=== PATIENT | female | born 1995 ===

== ENCOUNTER 2018-07-26 15:20 | Inpatient (IN) ==
[2018-07-26] MEDS ORDERED: DINOPROSTONE VAG GEL 10 MG SYRINGE VAG ONE ×2 (15:35→16:15)
[2018-07-26] MEDS ORDERED: MEPERIDINE 50 MG/1 ML VIAL IM PRN (15:45)
[2018-07-26] MEDS ORDERED: BUTORPHANOL 2 MG/ML VIAL IV PRN (15:45)
[2018-07-26] MEDS: LACTATED RINGERS 1,000 ML IV SCH ×2 (16:00→22:54)
[2018-07-26 16:34] LABS: Basophils % 0.3 % (0.0-0.8); Eosinophils # 0.2 10*3/uL (0.0-0.87); Eosinophils % 2.6 % (0.00-10.9); Hematocrit 32.2 VOL% (35.7-47.0); Hemoglobin 10.3 GM/DL (12.0-16.0); Immature Granulocytes % 0.3 %; Immature Granulocytes Absolute 0.02 #; Lymphocytes # 1.3 10*3/uL (1.4-4.0); Lymphocytes % 17.8 % (21.3-54.2); Mean Corpuscular Hemoglobin 30 PG (27-34); Mean Corpuscular Volume 92.5 FL (87-102); Mean Platelet Volume 10.5 FL (9.6-12.0); Monocytes # 0.6 10*3/uL (0.11-0.8); Monocytes % 8.7 % (1.7-12.7); Neutrophils # 5.1 10*3/uL (1.4-7.4); Neutrophils % 70.3 % (38.7-73.9); Platelet Count 254 T/CUMM (130-400); Red Blood Count 3.48 MC/CUMM (3.8-5.5); Red Cell Distribution Width 13.1 % (9.3-17.3); White Blood Count 7.2 T/CUMM (4-12)
[2018-07-26] MEDS: ONDANSETRON 4 MG/2 ML VIAL IV PRN (19:20)
[2018-07-26] MEDS ORDERED: NALOXONE 0.4 MG/ML VIAL IV PRN (21:43)
[2018-07-26] MEDS ORDERED: hydrOXYzine HCL 25 MG/1 ML VIAL IM PRN (21:43)
[2018-07-26] MEDS ORDERED: diphenhydrAMINE 50 MG/1 ML VIAL IV PRN (21:43)
[2018-07-26] MEDS ORDERED: ePHEDrine 50 MG/ML AMP IV PRN (21:43)
[2018-07-26] MEDS ORDERED: FAMOTIDINE 20 MG/2 ML VIAL IV ONE (21:44)
[2018-07-26] MEDS ORDERED: CITRIC ACID/SODIUM CITRATE 30 ML UDCUP PO ONE (21:44)
[2018-07-26] MEDS ORDERED: LACTATED RINGERS 1,000 ML IV ONE (21:45)
[2018-07-26] MEDS ORDERED: fentaNYL 2 MCG/ROPIV 0.2% EPID 100 ML EPIDURAL SCH (22:00)
[2018-07-27] MEDS ORDERED: AMPICILLIN INJ 2,000 MG in SODIUM CHLORIDE 0.9% 100 ML IV ONE
[2018-07-27] MEDS: LACTATED RINGERS 1,000 ML IV SCH (01:02)
[2018-07-27] MEDS ORDERED: AMPICILLIN INJ 1,000 MG in SODIUM CHLORIDE 0.9% 100 ML IV SCH (03:30)
[2018-07-27] MEDS ORDERED: OXYTOCIN/LR 20 UNIT/1,000 ML BAG IV SCH (05:00)
[2018-07-27] MEDS ORDERED: miSOPROStol 200 MCG TABLET ONE (05:01)
[2018-07-27] MEDS ORDERED: TRANEXAMIC ACID 1,000 MG/10 ML VIAL ONE (05:01)
[2018-07-27] MEDS ORDERED: CARBOPROST TROMETHAMINE 250 MCG/ML AMP IM ONE (05:02)
[2018-07-27] MEDS ORDERED: METHYLERGONOVINE 0.2 MG/1 ML AMP ONE (05:02)
[2018-07-27] MEDS ORDERED: CARBOPROST TROMETHAMINE 250 MCG/ML AMP IM STA (05:49)
[2018-07-27] MEDS: ONDANSETRON 4 MG/2 ML VIAL IV PRN (05:57)
[2018-07-27 06:01] LABS: Cord Arterial Blood HCO3 23.4 MMOL/L
[2018-07-27 06:02] LABS: Cord Venous Blood HCO3 26.6 MMOL/L; Cord Venous Blood PO2 34.4 MMHG
[2018-07-27] MEDS ORDERED: RHO(D) IMMUNE GLOBULIN 300 MCG SYRINGE IM ONE (06:04)
[2018-07-27] MEDS ORDERED: ONDANSETRON 4 MG/2 ML VIAL IV PRN (06:04)
[2018-07-27] MEDS ORDERED: BENZOCAINE 20%/MENTHOL 0.5% SPRAY 56 GM CAN TOP PRN (06:04)
[2018-07-27] MEDS ORDERED: DIPH/TET/ACEL PERT BOOSTER VACCINE 0.5 ML VIAL IM ONE (06:04)
[2018-07-27] MEDS ORDERED: WITCH HAZEL PADS 100/JAR TOP PRN (06:04)
[2018-07-27] MEDS ORDERED: BISACODYL 10 MG SUPP RECTAL PRN (06:04)
[2018-07-27] MEDS ORDERED: MEASLES/MUMPS/RUBELLA VACCINE 0.5 ML VIAL SUBCUT ONE (06:04)
[2018-07-27] MEDS ORDERED: LANOLIN 50% CREAM 0.3 OZ TUBE TOP PRN (06:04)
[2018-07-27] MEDS ORDERED: oxyCODONE/ACETAMINOPHEN 5-325 MG TABLET PO PRN ×2 (06:04)
[2018-07-27] MEDS ORDERED: ACETAMINOPHEN 325 MG TABLET PO PRN (06:04)
[2018-07-27] MEDS ORDERED: HYDROCORTISONE 2.5% RECTAL CREAM 30 GM TUBE TOP PRN (06:04)
[2018-07-27] MEDS ORDERED: OXYTOCIN/LR 20 UNIT/1,000 ML BAG IV ONE (06:04)
[2018-07-27] MEDS: IBUPROFEN 800 MG TABLET PO PRN ×2 (08:32→16:52)
[2018-07-27] MEDS ORDERED: PROMETHAZINE 25 MG/1 ML VIAL IM PRN (10:30)
[2018-07-27] MEDS: DOCUSATE SODIUM 100 MG CAPSULE PO SCH ×2 (10:32→20:08)
[2018-07-28 06:17] LABS: Basophils % 0.2 % (0.0-0.8); Eosinophils # 0.1 10*3/uL (0.0-0.87); Eosinophils % 1.2 % (0.00-10.9); Hematocrit 25.9 VOL% (35.7-47.0); Hemoglobin 8.2 GM/DL (12.0-16.0); Immature Granulocytes % 0.5 %; Immature Granulocytes Absolute 0.05 #; Lymphocytes % 20.7 % (21.3-54.2); Mean Corpuscular HGB Conc 31.7 GM/DL (32-36); Mean Corpuscular Hemoglobin 30 PG (27-34); Mean Corpuscular Volume 94.5 FL (87-102); Mean Platelet Volume 10.6 FL (9.6-12.0); Monocytes # 0.7 10*3/uL (0.11-0.8); Monocytes % 7.4 % (1.7-12.7); Neutrophils # 6.7 10*3/uL (1.4-7.4); Platelet Count 207 T/CUMM (130-400); Red Blood Count 2.74 MC/CUMM (3.8-5.5); Red Cell Distribution Width 13.5 % (9.3-17.3); White Blood Count 9.6 T/CUMM (4-12)
[2018-07-28] MEDS: IBUPROFEN 800 MG TABLET PO PRN (06:43)
[2018-07-28] MEDS: DOCUSATE SODIUM 100 MG CAPSULE PO SCH ×2 (10:18→20:06)
[2018-07-29 07:19] VITALS: BP 109/74
[2018-07-29] MEDS ORDERED: FERROUS SULFATE 325 MG TABLET PO SCH (09:00)
[2018-07-29] MEDS: DOCUSATE SODIUM 100 MG CAPSULE PO SCH (09:27)
== END 2018-07-29 12:40 | disposition home or self-care (01) | DRG 807 ==
LOC: N.LD 15:20 → N.OB 07-27 10:04
PROVIDERS: ADMIT Obstetrics & Gynecology; ATTEND Obstetrics & Gynecology

== ENCOUNTER 2020-10-02 06:23 | Inpatient (IN) ==
[2020-10-02] MEDS ORDERED: FAMOTIDINE 20 MG/2 ML VIAL IV ONE ×2 (06:35→06:46)
[2020-10-02] MEDS ORDERED: MEPERIDINE 50 MG/1 ML VIAL IV PRN (06:37)
[2020-10-02] MEDS ORDERED: LACTATED RINGERS 250 ML IV ONE (06:37)
[2020-10-02] MEDS ORDERED: ONDANSETRON 4 MG/2 ML VIAL IV PRN ×2 (06:37→08:29)
[2020-10-02] MEDS ORDERED: BUTORPHANOL 2 MG/ML VIAL IV PRN (06:37)
[2020-10-02] MEDS ORDERED: LACTATED RINGERS 500 ML IV PRN (06:37)
[2020-10-02] MEDS ORDERED: CITRIC ACID/SODIUM CITRATE 30 ML UDCUP ONE (06:46)
[2020-10-02] MEDS: LACTATED RINGERS 1,000 ML IV SCH ×2 (06:50→07:26)
[2020-10-02] MEDS ORDERED: CITRIC ACID/SODIUM CITRATE 30 ML UDCUP PO ONE (06:50)
[2020-10-02] MEDS ORDERED: CARBOPROST TROMETHAMINE 250 MCG/ML AMP IM ONE (06:50)
[2020-10-02] MEDS ORDERED: ceFAZolin 2,000 MG in PREMIX 1 EACH IV ONE (06:50)
[2020-10-02] MEDS ORDERED: TRANEXAMIC ACID 1,000 MG/10 ML VIAL ONE (06:50)
[2020-10-02] MEDS ORDERED: METHYLERGONOVINE 0.2 MG/1 ML AMP ONE (06:50)
[2020-10-02] MEDS ORDERED: miSOPROStoL 200 MCG TABLET ONE (06:50)
[2020-10-02] MEDS ORDERED: SODIUM CHLORIDE 0.9% 0 ML IV ONE (06:51)
[2020-10-02] MEDS ORDERED: OXYTOCIN 10 UNIT/ML VIAL ONE (06:51)
[2020-10-02] MEDS ORDERED: OXYTOCIN 10 UNIT/ML VIAL IM ONE (06:52)
[2020-10-02 06:54] LABS: Basophils % 0.3 % (0.0-0.8); Eosinophils # 0.1 10*3/uL (0.0-0.87); Eosinophils % 1.9 % (0.00-10.9); Hematocrit 37.6 VOL% (35.7-47.0); Immature Granulocytes % 0.4 %; Immature Granulocytes Absolute 0.03 #; Lymphocytes # 1.8 10*3/uL (1.4-4.0); Lymphocytes % 26.4 % (21.3-54.2); Mean Corpuscular HGB Conc 31.9 GM/DL (32-36); Mean Corpuscular Volume 98.2 FL (87-102); Mean Platelet Volume 10.4 FL (9.6-12.0); Monocytes % 7.4 % (1.7-12.7); Neutrophils % 63.6 % (38.7-73.9); Platelet Count 239 T/CUMM (130-400); Red Blood Count 3.83 MC/CUMM (3.8-5.5); Red Cell Distribution Width 15.2 % (9.3-17.3)
[2020-10-02] MEDS ORDERED: PHENYLEPHRINE 1 MG/10 ML SYRINGE IV ONE (07:00)
[2020-10-02] MEDS ORDERED: OXYTOCIN/LR 30 UNIT/1,000 ML BAG IV ONE (07:00)
[2020-10-02] MEDS ORDERED: BUPIVACAINE SPINAL 0.75% 2 ML AMP SPINAL ONE (07:00)
[2020-10-02] MEDS ORDERED: ONDANSETRON 4 MG/2 ML VIAL ONE (07:00)
[2020-10-02] MEDS ORDERED: LACTATED RINGERS 1,000 ML IV SCH ×3 (07:00→17:30)
[2020-10-02] MEDS ORDERED: MORPHINE 10 MG/10 ML VIAL ONE (07:01)
[2020-10-02] MEDS ORDERED: fentaNYL 100 MCG/2 ML VIAL ONE (07:01)
[2020-10-02] MEDS ORDERED: TERBUTALINE 1 MG/1 ML VIAL SUBCUT ONE (07:02)
[2020-10-02] MEDS ORDERED: TERBUTALINE 1 MG/1 ML VIAL ONE (07:04)
[2020-10-02] MEDS ORDERED: BUPIVACAINE MPF 0.25% 30 ML VIAL ONE (07:53)
[2020-10-02] MEDS ORDERED: DEXAMETHASONE 4 MG/1 ML VIAL ONE (07:53)
[2020-10-02 08:12] LABS: Bilirubin,Urine Negative (Negative); Blood, Urine Trace mg/dL (Negative); Glucose,Urine (UA) Negative (Negative); Ketones,Urine Negative (Negative); Nitrite,Urine Negative (Negative); Protein,Urine 30 MG/DL; Urine Appearance Clear (Clear); Urine Color Yellow (Yellow); Urine Specific Gravity 1.025 (1.001-1.035); Urine Urobilinogen 0.2 EU/DL (0.2-1.0)
[2020-10-02 08:12] LABS: Cord Venous Blood HCO3 22.1 MMOL/L; Cord Venous Blood PCO2 46.7 MMHG; Cord Venous Blood PO2 28.1
[2020-10-02] MEDS ORDERED: ACETAMINOPHEN 325 MG TABLET PO PRN (08:29)
[2020-10-02] MEDS ORDERED: OXYTOCIN/LR 20 UNIT/1,000 ML BAG IV ONE (08:29)
[2020-10-02] MEDS ORDERED: RHO(D) IMMUNE GLOBULIN 300 MCG SYRINGE IM ONE (08:29)
[2020-10-02] MEDS: IBUPROFEN 800 MG TABLET PO PRN ×2 (12:00→20:18)
[2020-10-02 16:32] LABS: Basophils % 0.1 % (0.0-0.8); Hematocrit 34.6 VOL% (35.7-47.0); Hemoglobin 11.3 GM/DL (12.0-16.0); Immature Granulocytes % 0.5 %; Immature Granulocytes Absolute 0.07 #; Lymphocytes # 0.7 10*3/uL (1.4-4.0); Lymphocytes % 4.9 % (21.3-54.2); Mean Corpuscular HGB Conc 32.7 GM/DL (32-36); Mean Corpuscular Volume 95.1 FL (87-102); Mean Platelet Volume 10.8 FL (9.6-12.0); Monocytes % 3.4 % (1.7-12.7); Neutrophils % 91.1 % (38.7-73.9); Platelet Count 248 T/CUMM (130-400); Red Blood Count 3.64 MC/CUMM (3.8-5.5); Red Cell Distribution Width 14.9 % (9.3-17.3); White Blood Count 14.8 T/CUMM (4-12)
[2020-10-02] MEDS: ceFAZolin 1,000 MG in SYRINGE 1 EACH IV SCH ×2 (16:44→23:09)
[2020-10-02] MEDS: DOCUSATE SODIUM 100 MG CAPSULE PO SCH ×2 (16:45→20:18)
[2020-10-02] MEDS: MULTIVITAMIN (PRENATAL) TABLET PO SCH (16:45)
[2020-10-02 22:18] LABS: Band Neutrophils 1 % (0-10); Lymphocytes 5 % (20-55); Platelet Estimate Normal; Segmented Neutrophils 91 % (50-85); Total Cells Counted 100
[2020-10-03] MEDS: IBUPROFEN 800 MG TABLET PO PRN ×2 (03:44→16:36)
[2020-10-03 07:25] LABS: Basophils % 0.2 % (0.0-0.8); Eosinophils # 0.1 10*3/uL (0.0-0.87); Eosinophils % 0.8 % (0.00-10.9); Hematocrit 29.6 VOL% (35.7-47.0); Hemoglobin 9.6 GM/DL (12.0-16.0); Immature Granulocytes % 0.4 %; Immature Granulocytes Absolute 0.04 #; Lymphocytes # 1.7 10*3/uL (1.4-4.0); Lymphocytes % 19.2 % (21.3-54.2); Mean Corpuscular HGB Conc 32.4 GM/DL (32-36); Mean Corpuscular Volume 96.7 FL (87-102); Mean Platelet Volume 10.5 FL (9.6-12.0); Monocytes % 7.9 % (1.7-12.7); Neutrophils % 71.5 % (38.7-73.9); Platelet Count 202 T/CUMM (130-400); Red Blood Count 3.06 MC/CUMM (3.8-5.5); Red Cell Distribution Width 15.6 % (9.3-17.3)
[2020-10-03] MEDS: MAGNESIUM HYDROXIDE SUSP 30 ML UDCUP PO PRN (08:45)
[2020-10-03] MEDS: SIMETHICONE CHEW 80 MG TABLET PO PRN (08:45)
[2020-10-03] MEDS: MULTIVITAMIN (PRENATAL) TABLET PO SCH (08:45)
[2020-10-03] MEDS: METOCLOPRAMIDE 10 MG TABLET PO SCH ×3 (08:45→23:08)
[2020-10-03] MEDS: DOCUSATE SODIUM 100 MG CAPSULE PO SCH ×2 (08:45→21:19)
[2020-10-04] MEDS: MAGNESIUM HYDROXIDE SUSP 30 ML UDCUP PO PRN (07:59)
[2020-10-04] MEDS: SIMETHICONE CHEW 80 MG TABLET PO PRN (07:59)
[2020-10-04] MEDS: METOCLOPRAMIDE 10 MG TABLET PO SCH ×2 (07:59→16:06)
[2020-10-04] MEDS: IBUPROFEN 800 MG TABLET PO PRN ×2 (07:59→19:50)
[2020-10-04] MEDS: MULTIVITAMIN (PRENATAL) TABLET PO SCH (07:59)
[2020-10-04] MEDS: DOCUSATE SODIUM 100 MG CAPSULE PO SCH ×2 (07:59→19:51)
[2020-10-05] MEDS: DOCUSATE SODIUM 100 MG CAPSULE PO SCH ×2 (08:18→20:36)
[2020-10-05] MEDS: MULTIVITAMIN (PRENATAL) TABLET PO SCH (08:18)
[2020-10-05] MEDS: IBUPROFEN 800 MG TABLET PO PRN (18:29)
[2020-10-06] MEDS ORDERED: IBUPROFEN 800 MG TABLET PO PRN (01:10)
[2020-10-06] MEDS: IBUPROFEN 800 MG TABLET PO PRN (14:34)
[2020-10-06] MEDS: MULTIVITAMIN (PRENATAL) TABLET PO SCH (14:35)
[2020-10-06] MEDS: DOCUSATE SODIUM 100 MG CAPSULE PO SCH (14:35)
[2020-10-06 17:09] VITALS: BP 117/81
== END 2020-10-06 17:00 | disposition home or self-care (01) | DRG 788 ==
LOC: N.LD 06:23 → N.OB 12:25
PROVIDERS: ADMIT Obstetrics & Gynecology; ATTEND Obstetrics & Gynecology
PROC: LDCSECT (ICD-10-PCS; 2020-10-02 08:00)